=== PATIENT | male | born 1995 | race Caucasian/White ===

== ENCOUNTER 2018-12-22 16:38 | Inpatient (IN) | payer MEDICAID ==
[~2018-12-22] VITALS: Ht 167.6 cm; Wt 89.4 kg
[2018-12-22 17:32] VITALS: BP 116/83
[2018-12-22] MEDS ORDERED: OLAN7.5T2 PO (20:42)
[2018-12-22] MEDS ORDERED: DIVA500T52 PO ×2 (20:42)
[2018-12-22] MEDS ORDERED: LAMO100 PO (20:42)
[2018-12-22] MEDS ORDERED: LITH300C3 PO (20:42)
[2018-12-22] MEDS ORDERED: MAG HYDROX/AL HYDROX/SIMETH ES 30 ML SUSPENSION UDCUP PO PRN (21:15)
[2018-12-22] MEDS ORDERED: ACETAMINOPHEN 325 MG TABLET PO PRN (21:15)
[2018-12-22] MEDS ORDERED: MAGNESIUM HYDROXIDE SUSPENSION 30 ML UDCUP PO PRN (21:15)
[2018-12-22] MEDS ORDERED: ALBUTEROL SULFATE HFA 90 MCG/PUFF 8 GM INHALER IH PRN (21:15)
[2018-12-22] MEDS ORDERED: LOPERAMIDE HCL 2 MG CAPSULE PO PRN (21:15)
[2018-12-22] MEDS ORDERED: CloNIDine HCL 0.1 MG TABLET PO PRN (21:15)
[2018-12-22] MEDS ORDERED: IBUPROFEN 400 MG TABLET PO PRN (21:15)
[2018-12-22] MEDS ORDERED: PETROLATUM,WHITE 28 GM JELLY TP PRN (21:15)
[2018-12-22] MEDS ORDERED: ONDANSETRON HCL 4 MG TABLET PO PRN (21:15)
[2018-12-22] MEDS ORDERED: NICOTINE 14 MG/24 HOUR PATCH TD PRN (21:15)
[2018-12-22] MEDS ORDERED: GuaiFENesin/D-METHORPHAN [SUGAR-FREE] 200-20MG/10 ML SYRUP UDCUP PO PRN (21:15)
[2018-12-22] MEDS ORDERED: DOCUSATE SODIUM 100 MG CAPSULE PO PRN (21:15)
[2018-12-23 06:45] VITALS: BP 117/72
[2018-12-23 08:10] LABS: BASOPHILS % (AUTO) 0.8 % (0.0-2.0); EOSINOPHILS % (AUTO) 5.7 % (1.0-6.0); HEMATOCRIT 48.4 % (41-53); HEMOGLOBIN 16.1 g/dL (13.5-17.5); LYMPHOCYTES # (AUTO) 2.4 K/uL (1.0-4.8); LYMPHOCYTES % (AUTO) 37.9 % (22.0-44.0); MEAN CORPUSCULAR HGB CONC 33.2 G/dL (31.0-37.0); MEAN CORPUSCULAR VOLUME 93 fL (80-100); MONOCYTES # (AUTO) 0.8 K/uL (0.1-1.0); MONOCYTES % (AUTO) 12.3 % (2.0-9.0); NEUTROPHILS # (AUTO) 2.8 K/uL (1.8-7.7); NEUTROPHILS % (AUTO) 43.3 % (40.0-70.0); PLATELET COUNT (AUTO) 242 K/uL (150-450); RED BLOOD CELL COUNT(AUTO) 5.18 MIL/uL (4.50-5.90); RED CELL DISTRIBUTION WIDTH 13.4 % (11.5-14.5)
[2018-12-23 08:16] VITALS: BP 131/79
[2018-12-23 08:21] LABS: LITHIUM 0.51 mmol/L (0.60-1.20)
[2018-12-23 08:41] LABS: ALANINE AMINOTRANSFERASE 95 U/L (12-78); ALKALINE PHOSPHATASE 94 U/L (46-116); ANION GAP 3 mmol/L (8-16); ASPARTATE AMINOTRANSFERASE 39 U/L (15-37); BILIRUBIN,TOTAL 0.5 mg/dL (0.1-1.0); CALCIUM, TOTAL 9.6 mg/dL (8.8-10.5); CARBON DIOXIDE 31 mmol/L (22-29); CHLORIDE 106 mmol/L (98-107); CHOL/HDL RATIO 4.5 (4.2-7.3); CHOLESTEROL 185 mg/dL (131-200); CREATININE 1.08 mg/dL (0.60-1.30); GLOMERULAR FILTR. RATE CALC > 60 mL/min (>60); GLUCOSE,RANDOM 77 mg/dL (70-110); HDL CHOLESTEROL 41 mg/dL (40-60); LDL CHOL (CALC.) 108 mg/dL (0-130); POTASSIUM 4.3 mmol/L (3.5-5.1); SODIUM SERUM 140 mmol/L (136-145); THYROID STIMULATING HORMONE 6.36 uIU/mL (0.36-3.74); TOTAL PROTEIN, SERUM 7.2 g/dL (6.4-8.2); TRIGLYCERIDES 179 mg/dL (15-150); UREA NITROGEN, BLOOD 16 mg/dL (7-18); VALPROIC ACID 67 mcg/mL (50-100)
[2018-12-23 16:00] VITALS: BP 120/85
[2018-12-24 05:39] VITALS: BP 115/75
[2018-12-24 08:12] VITALS: BP 134/82
[2018-12-24 16:10] VITALS: BP 121/67
[2018-12-25 06:23] VITALS: BP 124/82
[2018-12-25 08:18] VITALS: BP 133/76
[2018-12-25] MEDS: LITHIUM CARBONATE 300 MG CAPSULE PO SCH (16:05)
[2018-12-25] MEDS: DIVALPROEX SODIUM 500 MG DR TABLET PO SCH (16:05)
[2018-12-25 16:35] VITALS: BP 127/72
[2018-12-25] MEDS: LamoTRIgine 100 MG TABLET PO SCH (20:32)
[2018-12-25] MEDS: OLANZapine 7.5 MG TABLET PO SCH (20:32)
[2018-12-26 06:35] VITALS: BP 134/82
[2018-12-26 08:00] VITALS: BP 104/71
[2018-12-26] MEDS: DIVALPROEX SODIUM 500 MG DR TABLET PO SCH ×2 (09:27→16:10)
[2018-12-26] MEDS: LITHIUM CARBONATE 300 MG CAPSULE PO SCH ×2 (09:27→16:10)
[2018-12-26 16:00] VITALS: BP 119/75
[2018-12-26] MEDS: OLANZapine 7.5 MG TABLET PO SCH (20:12)
[2018-12-26] MEDS: LamoTRIgine 100 MG TABLET PO SCH (20:12)
[2018-12-27 06:22] VITALS: BP 121/79
[2018-12-27 08:22] VITALS: BP 119/72
[2018-12-27 08:24] VITALS: BP 119/72
[2018-12-27] MEDS: DIVALPROEX SODIUM 500 MG DR TABLET PO SCH ×2 (09:11→16:23)
[2018-12-27] MEDS: LITHIUM CARBONATE 300 MG CAPSULE PO SCH ×2 (09:11→16:23)
[2018-12-27] MEDS: BENZTROPINE MESYLATE 0.5 MG TABLET PO SCH ×2 (09:11→16:23)
[2018-12-27 16:48] VITALS: BP 130/71
[2018-12-27] MEDS: OLANZapine 7.5 MG TABLET PO SCH (20:12)
[2018-12-27] MEDS: LamoTRIgine 100 MG TABLET PO SCH (20:12)
[2018-12-28 06:33] VITALS: BP 128/83
[2018-12-28] MEDS: LITHIUM CARBONATE 300 MG CAPSULE PO SCH ×2 (08:45→16:38)
[2018-12-28] MEDS: BENZTROPINE MESYLATE 0.5 MG TABLET PO SCH ×2 (08:45→16:38)
[2018-12-28] MEDS: DIVALPROEX SODIUM 500 MG DR TABLET PO SCH ×2 (08:45→16:38)
[2018-12-28 10:34] VITALS: BP 119/69
[2018-12-28 16:00] VITALS: BP 114/68
[2018-12-28] MEDS: OLANZapine 7.5 MG TABLET PO SCH (20:28)
[2018-12-28] MEDS: LamoTRIgine 100 MG TABLET PO SCH (20:28)
[2018-12-29 06:43] VITALS: BP 122/78
[2018-12-29 08:17] VITALS: BP 117/80
[2018-12-29 08:40] LABS: LITHIUM 0.48 mmol/L (0.60-1.20)
[2018-12-29] MEDS ORDERED: OMEGA-3/DHA/EPA/FISH OIL 1,000 MG CAPSULE PO SCH (09:00)
[2018-12-29] MEDS: DIVALPROEX SODIUM 500 MG DR TABLET PO SCH (09:03)
[2018-12-29] MEDS: LITHIUM CARBONATE 300 MG CAPSULE PO SCH (09:03)
[2018-12-29] MEDS: BENZTROPINE MESYLATE 0.5 MG TABLET PO SCH (09:03)
[2018-12-29] MEDS ORDERED: OMEG-135 PO (10:55)
[2018-12-29] MEDS ORDERED: DIVA-78 PO (10:56)
== END 2018-12-29 12:00 | disposition home or self-care (01) | DRG 750 ==
LOC: B3A 18:56
PROVIDERS: ADMIT Psychiatry & Neurology Psychiatry; ATTEND Psychiatry & Neurology Psychiatry
DX: F25.9 Schizoaffective disorder, unspecified (principal); R74.0 Nonspecific elevation of levels of transaminase and lactic acid dehydrogenase [LDH]; E66.9 Obesity, unspecified; E78.5 Hyperlipidemia, unspecified; R41.843 Psychomotor deficit; Z68.31 Body mass index [BMI] 31.0-31.9, adult
CPT/HCPCS: 83036; 84439; 84443